=== PATIENT | female | born 2005 | race Caucasian/White ===

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

== ENCOUNTER 2024-03-22 14:12 | Emergency (ER) | payer BC, MEDICAID ==
[~2024-03-22] VITALS: Ht 162.6 cm; Wt 77.0 kg
[2024-03-22 17:13] VITALS: PULSE 74; RESP 18; O2SAT 97
[2024-03-22 17:33] LABS: Basophils # (auto) 0 10 ^3/uL (0-0.2); Basophils % (auto) 0.5 % (0.0-2.0); Eosinophils # (auto) 0.1 10 ^3/uL (0-0.8); Eosinophils % (auto) 0.7 % (0.0-7.0); Hematocrit 36.4 % (36.0-46.0); Hemoglobin 12.7 g/dL (12.2-16.2); Lymphocytes # (auto) 2.6 10 ^3/uL (0.4-5.4); Lymphocytes % (auto) 34.8 % (10.0-50.0); Mean Corpuscular Hemoglobin 29.2 pg (28.0-32.0); Mean Corpuscular Hgb Conc. 34.8 g/dL (32.0-36.0); Mean Corpuscular Volume 84.1 fL (80.0-100.0); Monocytes # (auto) 0.6 10 ^3/uL (0-1.3); Monocytes % (auto) 8.4 % (0.0-12.0); Neutrophils # (auto) 4.1 10 ^3/uL (1.6-8.6); Neutrophils % (auto) 55.6 % (37.0-80.0); Nucleated Red Blood Cells % 0.1 %; Red Blood Cells 4.33 10^6/uL (4.0-5.20); Red Cell Distribution Width 13.4 % (11.8-14.3); White Blood Cell 7.4 10^3/uL (4.4-10.8)
[2024-03-22 17:47] LABS: Alanine Aminotransferase 27 U/L (7-40); Albumin 4.4 g/dL (3.2-4.8); Alkaline Phosphatase 73 U/L (46-116); Anion Gap 8 (5-15); Aspartate Aminotransferase 19 U/L (13-40); BUN/Creatinine Ratio 17.5 (10.0-20.0); Blood Urea Nitrogen 14 mg/dL (9-23); Calcium 9.6 mg/dL (8.7-10.4); Carbon Dioxide 24 mmol/L (20-30); Chloride 109 mmol/L (98-107); Glucose 84 mg/dL (74-106); Magnesium 1.8 mg/dL (1.6-2.6); Potassium 3.6 mmol/L (3.5-5.1); Sodium 141 mmol/L (136-145)
[2024-03-22 17:48] LABS: Bilirubin, Total 1.7 mg/dL (0.2-1.0); Total Protein 7.3 g/dL (5.7-8.2)
[2024-03-22] MEDS: SODIUM CHLORIDE 0.9% 1,000 ML IV ONE (18:02)
[2024-03-22] MEDS: levETIRAcetam 1000 mg/100ml 100 ML IV ONE (18:03)
[2024-03-22] MEDS: LORazepam 2MG/ML-1ML VIAL IV ONE ×2 (18:03→18:56)
[2024-03-22] MEDS: LORazepam 2MG/ML-1ML VIAL ONE (18:57)
[2024-03-22 20:00] VITALS: PULSE 82; RESP 16; TEMP 97.8; O2SAT 98
[2024-03-22 23:08] LABS: Amphetamine Screen, Urine Neg (NEGATIVE); Barbiturate Scree,Urine Neg (NEGATIVE); Benzodiazephine Screen, Urine Neg (NEGATIVE); Cannabinoid Screen, Urine Neg (NEGATIVE); Cocaine Screen, Urine Neg (NEGATIVE); Opiate Scree,Urine Neg (NEGATIVE); Phencyclidine Screen, Urine Neg (NEGATIVE)
[2024-03-22 23:17] LABS: Urine Amorphous Crystal FEW /hpf (None Seen); Urine Bacteria FEW /hpf (None Seen); Urine Blood 3+ /uL (Negative); Urine Clarity Turbid (Clear); Urine Color Light-Orange (Yellow); Urine Mucus FEW (None Seen); Urine Protein, UAD 1+ (Negative); Urine Specific Gravity 1.032 (1.001-1.035); Urine Urobilinogen 3 mg/dL (Negative); Urine WBC 11 /hpf (0 - 5); Urine pH 5.5 (5.0-9.0)
[2024-03-23 00:20] VITALS: BP 110/70; PULSE 84; RESP 16; O2SAT 98
== END 2024-03-23 00:20 | disposition home or self-care (01) ==
LOC: EDUNIT# 14:12 → EDBD 14:12 → ER 14:12
DX: G40.909 Epilepsy, unspecified, not intractable, without status epilepticus (principal); R10.2 Pelvic and perineal pain; F32.9 Major depressive disorder, single episode, unspecified; R41.82 Altered mental status, unspecified; Z79.899 Other long term (current) drug therapy
CPT/HCPCS: 36415; 70450; 71045; 80053; 80307; 81001; 83735; 84702; 85025; 93005; 96365; 96375; 96376; 99285; J1953; J2060; J7030

== ENCOUNTER 2025-05-24 00:21 | Emergency (ER) | payer MEDICAID ==
[~2025-05-24] VITALS: Ht 160 cm; Wt 78.9 kg
[~2025-05-24 00:21] MED LIST changes: +BUPR-36 PO; +DIVA500T13 PO; +FLUO60TA7 PO; -LORazepam 2MG/ML-1ML VIAL IM ONE; -LORazepam 2MG/ML-1ML VIAL ONE; +QUET150T2 PO; -SODIUM CHLORIDE 0.9% 1,000 ML IVB ONE
[2025-05-24 02:22] LABS: Urine Protein, UAD Negative (Negative)
[2025-05-24] MEDS ORDERED: BACDST PO (02:33)
--- NOTE | 2025-05-24 02:33 | ED.PDOC ---
General HPI Comments s PT PRESENTED TO ED FOR URINARY S/S: DYSURIA, URINARY URGENCY AND FREQUENCY X3-4 WEEKS. (+) BLADDER DISCOMFORT. GCS-15, ALL VSS. Chief Complaint: Urinary Time Seen by MD: 00:30 Primary Care Provider: UNKNOWN Reviewed notes: Nurses Notes, Medications, Allergies Allergies: Coded Allergies: No Known Drug Allergy (Verified Allergy, Unknown, 07/30/24) Home Meds Reported Medications Bupropion Hcl (Wellbutrin Sr) 100 Mg Tab, 100 MG PO, TAB 03/23/24 Divalproex Sodium (Divalproex Sodium) 500 Mg Tab, 500 MG PO DAILY, MG 03/23/24 Quetiapine Fumerate (Seroquel Xr) 150 Mg Tab, 150 MG PO for 30 Days, MG 03/23/24 Fluoxetine HCl (Fluoxetine) 60 Mg Tab, 40 MG PO DAILY, TAB 03/23/24 Information Source: Patient Mode of Arrival: Ambulatory Past Medical History PAST MEDICAL HISTORY: Seizures Surgical History: Denies all surgeries [employer] History: Denies all [employer] Hx Family History Family History: Reviewed,noncontributory to illness Social History Smoker: Non-Smoker Alcohol: Denies ETOH Use Drugs: Denies Drug Use Lives In: Home All Other Systems: Reviewed and Negative Physical Exam General Appearance: No Apparent Distress, Normal HEENT: Pharynx Normal Neck: Full Range of Motion, Non-Tender Respiratory: Lungs Clear, No Respiratory Distress, Normal Breath Sounds Cardiovascular: No Murmur, Normal Peripheral Pulses, Regular Rate/Rhythm Breast Exam: Deferred Gastrointestinal: No Organomegaly, Non Tender, Soft, Other (NEG CVA TENDERNESS ) Genitalia: Deferred Pelvic: Deferred Rectal: Deferred Extremities: Normal capillary refill, Normal range of motion Musculoskeletal : Apperance: Normal Neurologic: Alert, No Motor Deficits, Normal Affect, Normal Mood, No Sensory Deficits Cerebellar Function: Normal Reflexes: NOT DONE Skin: Dry, Normal Color, Warm Lymphatic: No Adenopathy Was a procedure done? Was a procedure done?: No Differential Diagnosis Kidney stone (Female): Pyelonephritis, Strain, Urinary obstruction, Urolithiasis Urinary Problem (Female): UTI X-Ray, Labs, Meds, VS Vital Signs Date Time Temp Pulse Resp B/P (MAP) Pulse Ox O2 Delivery O2 Flow Rate FiO2 05/24/25 00:22 98.3 87 16 134/82 99 98.3 Lab Test 05/24/25 01:30 Range/Units Urine Color Light-yellow Yellow Urine Clarity Turbid H Clear Urine pH 8.0 5.0-9.0 Urine Specific [place] 1.011 1.001-1.035 Urine Protein Negative Negative Urine Ketones Negative Negative Urine Blood Negative Negative /uL Urine Nitrite Negative Negative Urine Bilirubin Negative Negative Urine Urobilinogen Normal Negative mg/dL Urine Leukocyte Esterase 2+ Negative /uL Urine RBC <1 0 - 4 /hpf Urine Microscopic WBC 7 H 0-5 /HPF Urine Squamous Epithelial Cells Mod <5 /hpf Urine Bacteria Few H None Seen /hpf Urine Glucose Normal Normal mg/dL Urine Test Negative Negative X-Ray, Labs, Meds, VS Comment Urine positive for infection. Patient given Rocephin 1 g IM. Script trial of Bactrim advised take medications as prescribed side effects discussed. Advised to rest increase p.o. fluids with electrolytes avoid caffeine. Follow up with your PCP in 2-3 days as needed consider repeat urine and culture if symptoms persist. ER return precautions given patient indicates understanding and agrees with discharge plan of care. Time of 1ST Reevaluation: 00:30 Reevaluation 1ST: Unchanged Time of 2ND Reevaluation: 02:32 Reevaluation 2ND: Improved Patient Education/Counseling: Diagnosis, Treatment, Need For Follow Up Family Education/Counseling: No Family Present SEPSIS Sepsis Screen Date sepsis recognized/suspect: May 24, 2025 Time Sepsis recognized/suspect: 0024 Recent Procedure: No On Antibiotic Therapy: No Respiratory Rate >20: No Heart Rate >90: No Temp<36 C (96.8 F) or >38.3 C: No SBP <90 or MAP <65 mmHG: No New Acute Mental Status Change: No Is the patient on CPAP, BIPAP,: No Physician Orders Ceftriaxone Sodium (Rocephin) (05/24/25 02:30) Vital Signs Date Time Temp Pulse Resp B/P (MAP) Pulse Ox O2 Delivery O2 Flow Rate FiO2 05/24/25 00:22 98.3 87 16 134/82 99 98.3 Departure 1 Departure Time of Disposition: 02:32 Impression: Primary Impression: Cystitis Disposition: 01 HOME / SELF CARE / HOMELESS Condition: Stable e-Prescriptions Sulfamethoxazole W/Trimethopri (Bactrim Ds Tablet) 1 Tab Tb 1 TAB PO BID for 5 Days, #10 TAB Prov: ALYSON,[place] [facility] 05/24/25 Discharged With: Self Critical Care Note Critical Care Time?: No Stability Stability form required: ALE Rivera May 24, 2025 02:33
[2025-05-24 02:40] VITALS: BP 117/74; PULSE 81; RESP 17; TEMP 98; O2SAT 97
[2025-05-24] MEDS: cefTRIAXone SOD 1,000 MG VL IM ONE (02:40)
== END 2025-05-24 02:50 | disposition home or self-care (01) ==
LOC: ER 00:21
DX: N30.90 Cystitis, unspecified without hematuria (principal); Z79.899 Other long term (current) drug therapy
CPT/HCPCS: 81001; 81025; 96372; 99283; J0696